=== PATIENT | male | born 1990 | race African-American/Black ===

== ENCOUNTER 2021-03-09 17:59 | Emergency (ER) | payer MEDICAID ==
[~2021-03-09] VITALS: Ht 165.1 cm; Wt 59.0 kg
[2021-03-09 18:40] LABS: CALCIUM, SERUM 8.7 mg/dL (8.5-10.1); CREATININE 0.9 mg/dL (0.6-1.3)
[2021-03-09 18:42] LABS: POTASSIUM 2.7 mmol/L (3.5-5.1)
[2021-03-09] MEDS ORDERED: POTASSIUM CL. PREMIX PERIPHER. 50 ML ONE (19:26)
[2021-03-09] MEDS ORDERED: POTASSIUM CHLORIDE 20 MEQ TAB.PRT.SR PO ONE ×2 (19:27→19:30)
[2021-03-09] MEDS ORDERED: POTASSIUM CL. PREMIX PERIPHER. 50 ML IV SCH (19:30)
[2021-03-09] MEDS ORDERED: IV NS 0.9% 1,000 ML IV ONE (19:30)
--- NOTE | 2021-03-09 19:50 | NUR ---
PT REFUSES TO GET A IV LINE. STATES " I WILL SOCK YOU IF YOU TOUCH ME. GET AWAY!". ADVISED EFFECTS OF NOT RECIEVING MEDICATIONS FOR LOW POTASSIUM AND STILL REFUSES TO LET ANY ONE PUT AN IV. MANAGER OF DEVELOPMENT AWARE OF THE SITUATION WILL MONITOR PT.
[2021-03-09] MEDS ORDERED: POTA-10 PO (19:53)
--- NOTE | 2021-03-09 21:00 | NUR ---
GUYNET BEING DISHCARGE, REUFUSED TO SIGN D/C PAPERWORK. PATIENT STATED, "I DON'T WANT TO LEAVE, YOU GUYS DID NOTHING FOR ME." PATIENT TOOK D/C PAPERS AND THROW THEM AT NURSE. PATIENT PROCEEDED TO WALK TO EXIST. PATIENT THROW LAB TUBES AT SITTER WHEN BEING TOLD WHERE TO EXIST. PATIENT THAN PUNCHED TV SCREEN AND BROKE SCREEN. PATIENT STARTED YELLING AT STAFF MEMBERS. PATIENT THAN ESCORTED BY SECURITY TO BED 15.
--- NOTE | 2021-03-09 21:05 | NUR ---
[employer] AT BEDSIDE
--- NOTE | 2021-03-09 21:15 | NUR ---
Patient discharged in stable condition. Written and verbal after care instructions given. Patient verbalizes understanding of instruction. Patient taken by [employer].
[2021-03-09 21:43] VITALS: BP 129/67
== END 2021-03-09 21:15 ==
LOC: ER 18:03
DX: E87.6 Hypokalemia (principal); R11.2 Nausea with vomiting, unspecified; Z79.899 Other long term (current) drug therapy
CPT/HCPCS: 36415; 80048; 99283; J3480